=== PATIENT | male | born 1955 | race Caucasian/White ===

== ENCOUNTER 2017-06-08 11:52 | Emergency (ER) | payer BC ==
[~2017-06-08] VITALS: Ht 180.3 cm; Wt 110.7 kg
[2017-06-08 11:58] VITALS: BP 141/88
[2017-06-08] MEDS ORDERED: IBUPROFEN 600 MG TAB PO ONE (11:58)
[2017-06-08] MEDS ORDERED: IBUPROFEN 800 MG TAB PO ONE (12:15)
== END 2017-06-08 13:39 | disposition home or self-care (01) ==
LOC: ER 11:52
DX: S52.501A Unspecified fracture of the lower end of right radius, initial encounter for closed fracture (principal); Z88.0 Allergy status to penicillin; W11.XXXA Fall on and from ladder, initial encounter; Y93.89 Activity, other specified; Y92.89 Other specified places as the place of occurrence of the external cause; Y99.8 Other external cause status
CPT/HCPCS: 29125; 73110

== ENCOUNTER 2024-12-24 06:26 | Day surgery (SDC) | payer OTHER ==
[2024-12-24] VITALS (10 sets, daily range): BP systolic 109–158; BP diastolic 68–89; PULSE 65–91; RESP 14–17; TEMP 98.6; O2SAT 93–98
[~2024-12-24] VITALS: Ht 180.3 cm; Wt 121.1 kg
[~2024-12-24 06:26] MED LIST: AMLO1TAB22 PO; LOSA-534 PO; NAP500T PO; NITR0.4S29 SL
[2024-12-24] MEDS: IODIXANOL 320MG/ML 100ML BTL IV ONE ×2 (07:34→08:47)
[2024-12-24] MEDS: HEPARIN IN NS 1000Units/500mL 1,500 ML ONE (07:35)
[2024-12-24] MEDS: VERAPAMIL 2.5MG/ML INJ 2ML VIAL IV ONE (07:56)
[2024-12-24] MEDS: NITROGLYCERIN 5MG/ML 10ML VIAL IV ONE (07:56)
[2024-12-24] MEDS: NOREPINEPHRINE 8 MG/250ML KIT 0 ML IV ONE (07:57)
[2024-12-24] MEDS: ANGIOMAX 250 MG VIAL IV ONE (07:57)
[2024-12-24] MEDS: LIDOCAINE 2%HCL (LOCAL ANESTH.) INJ 20ML MDV ONE (07:57)
[2024-12-24] MEDS: NITROGLYCERIN 50MG/250ML 250 ML IV ONE (08:04)
[2024-12-24] MEDS: fentaNYL CITRATE 100 MCG/2 ML VL ONE (08:07)
[2024-12-24] MEDS: MIDAZOLAM HCL 2MG/2ML 2ml VIAL (1mg/ml) ONE (08:08)
--- NOTE | 2024-12-24 09:16 | DVHOP2 ---
Operative Report Operative Report CARDIAC FIELD EDUCATION DIRECTOR PROCEDURE REPORT [place], [place] Date of Service: 12/24/24 Recreation Facility Attendant: Bear Lorenz MD PROCEDURES PERFORMED: Coronary angiogram, left heart catheterization, conscious sedation administration and supervision, less than 15 minutes; fluoroscopy use and interpretation. sedation 15-30 mins, sedation 31-45 mins, ptca 1 vessel, pci 1 vessel PREOPERATIVE DIAGNOSES: Abnormal stress test with CCS class 3 angina, POSTOP DIAGNOSIS: 2v cad DESCRIPTION OF PROCEDURE: The patient or appropriate family signed informed consent understanding the risks, benefits and alternatives of the procedure, they wished to proceed. The patient was brought to the cardiac laborer cutting tool in n.p.o. state. The patient was prepped in a sterile fashion. Sedation was used per cardiac cath protocol. I administered 2 mL of 2% lidocaine to the right wrist. With an antegrade front wall puncture. I cannulated the right radial artery and placed a 6-[place] Glides[place]ath slender. Next, an intra-arterial spasmolytic was administered. Next, a - 6[place] catheter and JR4 and XB 3.5 guide and were used for coronary angiogram and LVEDP measurement and pressure pullback. At the completion of procedure, all guides and wires were removed, and there were no immediate complications. FINDINGS: RCA: Moderate vessel off the right sinus of Valsalva, there is no severe flow limiting stenosis. moderte diffuse disease. mid RCA has a 50% tubular stenosis. LEFT MAIN: Moderate size left main, it bifurcates into LAD and circumflex. mild distla plaque. CIRCUMFLEX: Moderate to large caliber vessel coming off the left main . prox CX is patent. mid CX has mild plaque. OM1 is very small. OM2 is moderately large with mild diffuse plaque. OM3 has a moderate to large vessel. mid portion has a 90-95% heavily calcified stenosis. it bifurcates distally LAD: LAD is a moderate caliber vessel coming of the left main. prox LAD is a [employer] with heavy diagonal disease and calcium. INTERVENTION: We decided to proceed with coronary intervention. I started with a 6F _XB 3.5 ___ Guide to intubate the _LM _. Angiomax bolus and gtt was started. Following this, I decided to wire using an .014 BMW across the culprit lesion with ease. At this time, we performed balloon angioplasty with a _2.5 x 15 mm balloon 12___ ATMS over __15__ seconds with _2__ number of inflations. Following this, I decided to place a stent using a 2.5 x 18 mm onyx____ stent inflated up t o __18___ ATMS over 15 seconds with two separate inflations. Following this, the stent balloon removed and angio performed showing 0% residual stenosis. NUVIA pre/post: 3./3 CONCLUSIONS: 1. sp PCI to 90-95% Om3 lesion 2. LAD is prox [employer] PLAN: Aggressive risk factor modification and medical management for the patient. DAPT x 1 year uninterrupted BEAR LORENZ MD December 24, 2024 09:16
[2024-12-24] MEDS: TICAGRELOR 90 MG TAB ONE (09:27)
== END 2024-12-24 12:05 | disposition home or self-care (01) ==
LOC: CATH 06:26
PROVIDERS: ATTEND Internal Medicine
DX: I25.119 Atherosclerotic heart disease of native coronary artery with unspecified angina pectoris (principal); R07.9 Chest pain, unspecified; R94.39 Abnormal result of other cardiovascular function study; Z79.899 Other long term (current) drug therapy; Z98.890 Other specified postprocedural states
CPT/HCPCS: 93458; C1725; C1769; C1874; C1887; C1894; C9600; J0583; J1644; J2250; J3010; J7030; Q9967; 99152; 99153; J3490